=== PATIENT | female | born 1970 | race American Indian/Alaskan Native ===

== ENCOUNTER 2017-02-24 17:33 | Emergency (ER) | payer OTHER ==
[2017-02-24 17:40] VITALS: BMI 58.4
[2017-02-24 17:43] VITALS: BP 160/90; PULSE 84; RESP 18; TEMP 98.3
--- NOTE | 2017-02-24 17:52 | ED PDOC ---
Arrival/HPI - General Chief Complaint: Abdominal Pain Time Seen by Provider: 02/24/17 17:35 Historian: Patient - History of Present Illness Narrative History of Present Illness (Text): 02/24/17 17:50 46yo morbidly obese female present with complaint of suprapubic pain since this morning. States she started having urinary frequency last week. Denies dysuria, fever, chills, back pain, any other complaint. Past Medical History - Provider Review Nursing Documentation Reviewed: Yes - Infectious Disease Hx of Infectious Diseases: None - Tetanus Immunization Tetanus Immunization: Unknown - Past Medical History Past Medical History: No Previous - Cardiac Hx Cardiac Disorders: No - Pulmonary Hx Respiratory Disorders: No - Neurological Hx Migraine: Yes - HEENT Hx HEENT Disorder: No - Renal Hx Renal Disorder: No - Endocrine/Metabolic Hx Endocrine Disorders: No - Hematological/Oncological Hx Blood Disorders: No - Integumentary Hx Dermatological Disorder: No - Musculoskeletal/Rheumatological Hx Musculoskeletal Disorders: No Hx Falls: No - Gastrointestinal Hx Gastrointestinal Disorders: No - Genitourinary/Gynecological Hx Genitourinary Disorders: (abd pain; fibroids) - Psychiatric Hx Psychophysiologic Disorder: No Hx Emotional Abuse: No Hx Physical Abuse: No Hx Substance Use: No - Past Surgical History Past Surgical History: No Previous - Surgical History Hx Abdominal Aortic Aneurysm Repair: Yes Other/Comment: fibroid in stomach - Anesthesia Hx Anesthesia: Yes Hx Anesthesia Reactions: No Hx Malignant Hyperthermia: No - Suicidal Assessment Feels Threatened In Home Enviroment: No Family/Social History - Physician Review Nursing Documentation Reviewed: Yes Family/Social History: Unknown Family HX Smoking Status: Never Smoked Hx Alcohol Use: No Hx Substance Use: No Hx Substance Use Treatment: No Allergies/Home Meds Allergies/Adverse Reactions: Allergies ibuprofen Allergy (Verified 06/30/16 03:52) ANAPHYLAXIS Review of Systems - Physician Review All systems were reviewed & negative as marked: Yes - Review of Systems Constitutional: Normal Eyes: Normal ENT: Normal Respiratory: Normal Cardiovascular: Normal Gastrointestinal: Abdominal Pain. absent: Constipation, Diarrhea, Nausea, Vomiting, Hematochezia, Hematemesis Genitourinary Female: Frequency. absent: Dysuria, Hematuria Musculoskeletal: Normal Skin: Normal Neurological: Normal Endocrine: Normal Hemo/Lymphatic: Normal Psychiatric: Normal Physical Exam Vital Signs Reviewed: Yes Vital Signs Temp Pulse Resp BP Pulse Ox 02/24/17 18:15 98.3 F 84 18 160/90 H 98 02/24/17 17:41 98.3 F 84 18 160/90 H 97 Temperature: Afebrile Blood Pressure: Normal Pulse: Regular Respiratory Rate: Normal Appearance: Positive for: Well-Appearing, Non-Toxic, Comfortable Pain Distress: None Mental Status: Positive for: Alert and Oriented X 3 - Systems Exam Head: Present: Atraumatic, Normocephalic Pupils: Present: PERRL Extroacular Muscles: Present: EOMI Conjunctiva: Present: Normal Mouth: Present: Moist Mucous Membranes Neck: Present: Normal Range of Motion Respiratory/Chest: Present: Clear to Auscultation, Good Air Exchange. No: Respiratory Distress, Accessory Muscle Use Cardiovascular: Present: Regular Rate and Rhythm, Normal S1, S2. No: Murmurs Abdomen: Present: Tenderness (Suprapubic tenderness), Normal Bowel Sounds, Other (Soft). No: Distention, Peritoneal Signs, Rebound, Guarding, McBurney's Point Tender, Rovsing's Sign Present Back: Present: Normal Inspection. No: CVA Tenderness Upper Extremity: Present: Normal Inspection. No: Cyanosis, Edema Lower Extremity: Present: Normal Inspection. No: Edema Neurological: Present: GCS=15, CN II-XII Intact, Speech Normal Skin: Present: Warm, Dry, Normal Color. No: Rashes Psychiatric: Present: Alert, Oriented x 3, Normal Insight, Normal Concentration Medical Decision Making ED Course and Treatment: 02/24/17 21:18 Pt afebrile and comfortable in ED was treated and DC home with Macrobid for UTI. Referred to her PMD. TRT ED for any new or worsening symptoms - Lab Interpretations Lab Results: Lab Results 02/24/17 18:10: Urine Color Yellow, Urine Appearance Cloudy, Urine pH 6.5, Ur Specific [place] 1.015, Urine Protein Trace H, Urine Glucose (UA) Negative, Urine Ketones Negative, Urine Blood Large H, Urine Nitrate Negative, Urine Bilirubin Negative, Urine Urobilinogen 0.2, Ur Leukocyte Esterase Large H, Urine RBC 5 - 10, Urine WBC 15 - 20, Ur Epithelial Cells 6 - 8, Urine Bacteria Many - Medication Orders Current Medication Orders: Discontinued Medications Nitrofurantoin Macrocrystals (Macrobid) 100 mg PO ONCE STA Stop: 02/24/17 18:58 Last Admin: 02/24/17 19:09 Dose: Not Given Non-Admin Reason: Patient Refused Tramadol HCl (Ultram) 50 mg PO STAT STA Stop: 02/24/17 18:58 Last Admin: 02/24/17 19:09 Dose: 50 MG Disposition/Present on Arrival - Present on Arrival Any Indicators Present on Arrival: No History of DVT/PE: No History of Uncontrolled Diabetes: No Urinary Catheter: No History of Decub. Ulcer: No History Surgical Site Infection Following: None - Disposition Have Diagnosis and Disposition been Completed?: Yes Diagnosis: UTI (urinary tract infection) Disposition: HOME/ ROUTINE Disposition Time: 19:00 Patient Plan: Discharge Condition: STABLE Discharge Instructions (ExitCare): Urinary Tract Infection in Women (ED) Additional Instructions: Follow up with your Doctor Drink plenty of fluid/cranberry supplement Return to ED for any new or worsening symptoms Prescriptions: Nitrofurantoin Macrocrystals [Macrobid] 100 mg PO BID #14 cap Referrals: [facility] [place] [Outside] - Follow up with primary
[2017-02-24 18:15] VITALS: O2SAT 98
[2017-02-24 18:44] LABS: PH,URINE 6.5 (4.7-8.0); URINE BILIRUBIN NEGATIVE (NEGATIVE); URINE BLOOD LARGE (NEGATIVE); URINE GLUCOSE (UA) NEGATIVE (NEGATIVE); URINE KETONE NEGATIVE (NEGATIVE); URINE LEUKOCYTE ESTERASE LARGE Leu/uL (NEGATIVE); URINE PROTEIN TRACE mg/dL (<30 mg/dL); URINE UROBILINOGEN 0.2 E.U./dL (<1 E.U./dL)
[2017-02-24 18:45] LABS: URINE APPEARANCE CLOUDY (CLEAR); URINE COLOR YELLOW (YELLOW)
[2017-02-24 18:47] LABS: URINE BACTERIA MANY (NEG); URINE WBC 15 - 20 /hpf (0-6)
== END 2017-02-24 19:15 | disposition home or self-care (01) ==
LOC: ED 17:33
DX: N39.0 Urinary tract infection, site not specified (principal)

== ENCOUNTER 2017-06-25 13:45 | Emergency (ER) | payer OTHER ==
[2017-06-25 14:01] VITALS: BMI 62.3
--- NOTE | 2017-06-25 14:25 | ED PDOC ---
Arrival/HPI - General Chief Complaint: Abdominal Pain Time Seen by Provider: 06/25/17 14:05 Historian: Patient - History of Present Illness Narrative History of Present Illness (Text): 06/25/17 14:22 A 46 year old female, who denies any past medical history, presents to the emergency department complaining of constant left sided abdominal pain since this morning. Patient reports radiating pain to left lower back, which currently has resolved. Patient notes urinary frequency but denies any fever, chills, nausea, vomiting, diarrhea, dysuria, hematuria, hematochezia, vaginal bleeding or discharge, chest pain, shortness of breath or any other complaints. Patients last menstrual period was approximately 4 days ago. PMD: Non-[facility] provider Time/Duration: Other (this morning) Symptom Course: Unchanged Quality: Other Context: Home Past Medical History - Provider Review Nursing Documentation Reviewed: Yes - Infectious Disease Hx of Infectious Diseases: None - Tetanus Immunization Tetanus Immunization: Unknown - Past Medical History Past Medical History: No Previous - Cardiac Hx Cardiac Disorders: No - Pulmonary Hx Respiratory Disorders: No - Neurological Hx Migraine: Yes - HEENT Hx HEENT Disorder: No - Renal Hx Renal Disorder: No - Endocrine/Metabolic Hx Endocrine Disorders: No - Hematological/Oncological Hx Blood Disorders: No - Integumentary Hx Dermatological Disorder: No - Musculoskeletal/Rheumatological Hx Musculoskeletal Disorders: No Hx Falls: No - Gastrointestinal Hx Gastrointestinal Disorders: No - Genitourinary/Gynecological Hx Genitourinary Disorders: (abd pain; fibroids) - Psychiatric Hx Psychophysiologic Disorder: No Hx Substance Use: No - Past Surgical History Past Surgical History: No Previous - Surgical History Hx Abdominal Aortic Aneurysm Repair: Yes Other/Comment: fibroid in stomach 2010 - Anesthesia Hx Anesthesia: Yes Hx Anesthesia Reactions: No Hx Malignant Hyperthermia: No - Suicidal Assessment Feels Threatened In Home Enviroment: No Family/Social History - Physician Review Nursing Documentation Reviewed: Yes Family/Social History: No Known Family HX Smoking Status: Never Smoked Hx Alcohol Use: No Hx Substance Use: No Hx Substance Use Treatment: No Allergies/Home Meds Allergies/Adverse Reactions: Allergies ibuprofen Allergy (Verified 06/30/16 03:52) ANAPHYLAXIS Review of Systems - Physician Review All systems were reviewed & negative as marked: Yes - Review of Systems Constitutional: absent: Fevers, Night Sweats Respiratory: absent: SOB Cardiovascular: absent: Chest Pain Gastrointestinal: Abdominal Pain (left sided). absent: Diarrhea, Nausea, Vomiting, Hematochezia Genitourinary Female: Frequency. absent: Dysuria, Hematuria, Vaginal Bleeding, Vaginal Discharge Musculoskeletal: Back Pain (resolved) Physical Exam Vital Signs Reviewed: Yes Vital Signs Temp Pulse Resp BP Pulse Ox 06/25/17 17:00 97.4 F L 06/25/17 15:45 97.4 F L 80 18 159/94 H 100 06/25/17 13:45 99 F 83 18 155/92 H 98 Temperature: Afebrile Blood Pressure: Hypertensive Pulse: Regular Respiratory Rate: Normal Appearance: Positive for: Well-Appearing, Non-Toxic, Comfortable Pain Distress: None Mental Status: Positive for: Alert and Oriented X 3 - Systems Exam Head: Present: Atraumatic, Normocephalic Pupils: Present: PERRL Extroacular Muscles: Present: EOMI Conjunctiva: Present: Normal Mouth: Present: Moist Mucous Membranes Pharnyx: No: ERYTHEMA, EXUDATE, TONSILS ENLARGED Neck: Present: Normal Range of Motion Respiratory/Chest: Present: Clear to Auscultation, Good Air Exchange. No: Respiratory Distress, Accessory Muscle Use Cardiovascular: Present: Regular Rate and Rhythm, Normal S1, S2. No: Murmurs Abdomen: Present: Tenderness (Diffuse left sided abdominal tenderness to palpation), Normal Bowel Sounds. No: Distention, Peritoneal Signs, Rebound, Guarding Genitourinary/Pelvic Exam: Present: Normal External Genitalia, Vaginal Bleeding (mild), Adenexal Tenderness (mild left adnexal tenderness but no guarding), Cervical os Closed, Other (Chaperoned by EMT Samir). No: Vaginal Discharge, Vaginal Lesions, Adenexal Mass, Cervical Motion Tendernes Back: Present: Normal Inspection Upper Extremity: Present: Normal Inspection. No: Cyanosis, Edema Lower Extremity: Present: Normal Inspection. No: Edema Neurological: Present: GCS=15, CN II-XII Intact, Speech Normal Skin: Present: Warm, Dry, Normal Color. No: Rashes Psychiatric: Present: Alert, Oriented x 3, Normal Insight, Normal Concentration Medical Decision Making ED Course and Treatment: 06/25/17 14:22 Impression: A 46 year old female with left sided abdominal pain. Patient notes urinary frequency. On exam, diffuse left sided tenderness. Differential Diagnosis included but are not limited to: Diverticulitis vs. Colitis vs. UTI vs. Renal colic Plan: -- Abdomen and pelvis CT -- Labs -- Urine culture and Urinalysis -- IV fluids -- Reassess and disposition Progress Notes: 06/25/17 17:42 Patient felt much better after tylenol, IVF and Zofran. TVsono could not visualize left ovary due to body habitus. Patients exam is left sided and not focal to left lower. CT shows enteritis which is more consistent with her symptoms. She also has trichomonas and a UTI. She will be treated with Cipro and Flagyl and be discharge home. Advised to start Flagyl tomorrow but continue Cipro today. She was also advised to follow up with her obgyn in 1-2days. She has one to follow up with. In addition she will f/u with her PMD. Advised to return to the ED if symptoms worsen or any other concern. - Lab Interpretations Lab Results: 06/25/17 15:00 06/25/17 15:00 Lab Results 06/25/17 15:00: Sodium 139, Potassium 3.5 L, Chloride 103, Carbon Dioxide 28, Anion Gap 12, BUN 13, Creatinine 0.8, Est GFR ( Amer) > 60, Est GFR (Non- Af Amer) > 60, Random Glucose 95, Calcium 9.0, Total Bilirubin 0.4, AST 23, ALT 32, Alkaline Phosphatase 53, Total Protein 7.5, Albumin 4.0, Globulin 3.5, Albumin/Globulin Ratio 1.1, Lipase 111 06/25/17 15:00: Urine Color Yellow, Urine Appearance Cloudy, Urine pH 6.5, Ur Specific [place] 1.015, Urine Protein 30 H, Urine Glucose (UA) Negative, Urine Ketones Negative, Urine Blood Large H, Urine Nitrate Negative, Urine Bilirubin Negative, Urine Urobilinogen 0.2, Ur Leukocyte Esterase Large H, Urine RBC 5 - 10, Urine WBC 20 - 25, Ur Epithelial Cells 3 - 4, Urine Bacteria Mod, Urine Other Trichomonas 06/25/17 15:00: PT 10.7, INR 0.99, APTT 25.0 06/25/17 15:00: WBC 8.4, RBC 4.14, Hgb 10.7 L, Hct 32.0 L, MCV 77.3 L, MCH 25.8 , MCHC 33.4, RDW 14.8 H, Plt Count 370, MPV 9.2, Gran % 61.5, Lymph % (Auto) 32.6, [place] % (Auto) 5.0, Eos % (Auto) 0.7 L, Baso % (Auto) 0.2, Gran # 5.18, Lymph # 2.8, [place] # 0.4, Eos # 0.1, Baso # 0.02 I have reviewed the lab results: Yes - RAD Interpretation Radiology Orders: 06/25/17 14:28 ABD & PELVIS IV CONTRAST ONLY [CT] Stat 06/25/17 15:00 TRANSVAGINAL [US] Stat - Medication Orders Current Medication Orders: Sodium Chloride (Sodium Chloride 0.9%) 1,000 mls @ 100 mls/hr IV .Q10H STA Stop: 06/26/17 00:26 Last Admin: 06/25/17 15:05 Dose: 100 mls/hr Discontinued Medications Acetaminophen (Tylenol 325mg Tab) 975 mg PO STAT STA Stop: 06/25/17 15:36 Last Admin: 06/25/17 17:00 Dose: 975 mg Ciprofloxacin (Cipro) 500 mg PO ONCE STA PRN Reason: Protocol Stop: 06/25/17 17:18 Last Admin: 06/25/17 17:35 Dose: 500 mg Iohexol (Omnipaque 350 150 Ml) Confirm Administered Dose 150 ml .ROUTE .STK-MED ONE Stop: 06/25/17 16:24 Metronidazole (Flagyl) 2,000 mg PO STAT STA PRN Reason: Protocol Stop: 06/25/17 17:29 Ondansetron HCl (Zofran Inj) 4 mg IVP STAT STA Stop: 06/25/17 17:05 Last Admin: 06/25/17 17:16 Dose: 4 mg Potassium Chloride (K-Dur 20 Meq Er Tab) 40 meq PO STAT STA Stop: 06/25/17 15:37 Last Admin: 06/25/17 16:53 Dose: 40 meq - Scribe Statement The provider has reviewed the documentation as recorded by the Scribe Kiki Shankar Provider Scribe Attestation: All medical record entries made by the Scribe were at my direction and personally dictated by me. I have reviewed the chart and agree that the record accurately reflects my personal performance of the history, physical exam, medical decision making, and the department course for this patient. I have also personally directed, reviewed, and agree with the discharge instructions and disposition. Disposition/Present on Arrival - Present on Arrival Any Indicators Present on Arrival: No History of DVT/PE: No History of Uncontrolled Diabetes: No Urinary Catheter: No History of Decub. Ulcer: No History Surgical Site Infection Following: None - Disposition Have Diagnosis and Disposition been Completed?: Yes Diagnosis: Enteritis, Abdominal pain Disposition: HOME/ ROUTINE Disposition Time: 17:47 Patient Plan: Discharge Patient Problems: Current Active Problems Problem Status Onset Enteritis Acute Abdominal pain Acute Condition: IMPROVED Discharge Instructions (ExitCare): Acute Abdominal Pain (ED), Enteritis (ED) Additional Instructions: Ms Stern, thank you for letting us take care of you today. Your provider was Dr. Munoz. You were treated for Abdominal Pain, Enteritis. The emergency medical care you received today was directed at your acute symptoms. If you were prescribed any medication, please fill it and take as directed. It may take several days for your symptoms to resolve. Return to the Emergency Department if your symptoms worsen, do not improve, or if you have any other problems. Please contact your doctor or call one of the physicians/clinics you have been referred to that are listed on the Patient Visit Information form that is included in your discharge packet. Bring any paperwork you were given at discharge with you along with any medications you are taking to your follow up visit. Our treatment cannot replace ongoing medical care by a primary care provider (PCP) outside of the emergency department. Thank you for allowing the [facility] team to be part of your care today. If you had an X-Ray or CT scan: A Radiologist will review the ED reading if any change in treatment is needed we will contact you. If you had a blood, urine, or wound culture: It will take several days for the results, if any change in treatment is needed we will contact you. If you had an STI test: It will take 48 hours for the results. Please call after 1 week if you have not heard back. Prescriptions: Acetaminophen with Codeine [Tylenol with Codeine #3 Tablet] 1 each PO Q6 PRN # 20 tablet PRN Reason: Pain, Moderate (4-7) Ciprofloxacin HCl [Cipro] 500 mg PO BID #20 tab Metronidazole [Flagyl] 500 mg PO TID #30 tab Referrals: PCP,NO [Primary Care Provider] - Follow up with primary Forms: [employer] ([place]grin), WORK NOTE
[2017-06-25] MEDS ORDERED: Sodium Chloride 0.9% 1,000 ML IV STA (14:27)
[2017-06-25 15:20] LABS: ALB/GLOB RATIO 1.1 (1.1-1.8); ALKALINE PHOSPHATASE 53 U/L (38-133); ALT/SGPT 32 U/L (7-56); AST/SGOT 23 U/L (15-39); BILIRUBIN,TOTAL 0.4 mg/dL (0.2-1.3); BLOOD UREA NITROGEN 13 mg/dL (7-21); CARBON DIOXIDE 28 mmol/L (21-33); GFR AFRICAN-AMERICAN > 60; GLUCOSE,RANDOM 95 mg/dL (70-110); LIPASE 111 U/L (23-300); POTASSIUM 3.5 mmol/L (3.6-5.0); SODIUM 139 mmol/L (132-148); TOTAL PROTEIN 7.5 g/dL (5.8-8.3)
[2017-06-25 15:23] LABS: BASO # 0.02 K/mm3 (0.0-2.0); BASO % 0.2 % (0.0-3.0); EOS # 0.1 (0.0-0.7); EOS % 0.7 % (1.5-5.0); GRAN # 5.18 (1.4-6.5); GRAN % 61.5 % (50.0-68.0); LYMPH # 2.8 (1.2-3.4); LYMPH % 32.6 % (22.0-35.0); MEAN CELL VOLUME 77.3 fl (80.0-105.0); MEAN CORPUSCULAR HEMOGLOBIN 25.8 pg (25.0-35.0); MEAN CORPUSCULAR HGB CONC 33.4 g/dl (31.0-37.0); MEAN PLATELET VOLUME 9.2 fl (7.0-11.0); MONO # 0.4 (0.1-0.6); RED CELL DISTRIBUTION WIDTH 14.8 % (11.5-14.5); WHITE BLOOD COUNT 8.4 10^3/ul (4.5-11.0)
[2017-06-25 15:24] LABS: PH,URINE 6.5 (4.7-8.0); URINE BILIRUBIN NEGATIVE (NEGATIVE); URINE BLOOD LARGE (NEGATIVE); URINE GLUCOSE (UA) NEGATIVE (NEGATIVE); URINE KETONE NEGATIVE (NEGATIVE); URINE LEUKOCYTE ESTERASE LARGE Leu/uL (NEGATIVE); URINE PROTEIN 30 mg/dL (<30 mg/dL); URINE UROBILINOGEN 0.2 E.U./dL (<1 E.U./dL)
[2017-06-25 15:25] LABS: URINE APPEARANCE CLOUDY (CLEAR); URINE COLOR YELLOW (YELLOW)
[2017-06-25 15:31] LABS: INR 0.99 (0.93-1.08)
[2017-06-25 15:35] LABS: CHLORIDE 103 mmol/L (98-107)
[2017-06-25] MEDS ORDERED: Potassium Chloride 20 mEq ER Tab PO STA (15:36)
[2017-06-25 15:49] LABS: URINE BACTERIA MOD (NEG); URINE WBC 20 - 25 /hpf (0-6)
--- NOTE | 2017-06-25 16:28 | US ---
HISTORY: left adnexal tenderness r/o cyst vs torsion COMPARISON: None available. TECHNIQUE: Transabdominal and transvaginal FINDINGS: UTERUS: Measures 10.5 x 3.8 x 5.3 cm. No uterine mass. ENDOMETRIUM: Endometrium is significant for endometrial mass measuring approximately 2.4 x 1.1 by 1.7 cm, likely polyp. No definite vascular flow demonstrated sonographically. CERVIX: No cervical abnormality identified. RIGHT OVARY: Measures 2.4 x 2.1 x 1.5 cm. No solid mass. Normal flow. LEFT OVARY: Could not be visualized by transabdominal or transvaginal technique. Examination limited due to patient body habitus. FREE FLUID: No significant free fluid noted. OTHER FINDINGS: None. IMPRESSION: Nonvisualization of left ovary. Cannot exclude torsion. Probable endometrial polyp. No additional abnormality.
--- NOTE | 2017-06-25 17:13 | CT ---
PROCEDURE: CT Abdomen and Pelvis with contrast HISTORY: left sided pain r/o diverticulitis COMPARISON: 06/21/2015 TECHNIQUE: Contrast dose: 150 mL Omnipaque 350 Radiation dose: Total exam DLP = 1360.28 mGy-cm. This CT exam was performed using one or more of the following dose reduction techniques: Automated exposure control, adjustment of the mA and/or kV according to patient size, and/or use of iterative reconstruction technique. FINDINGS: LOWER THORAX: Unremarkable. LIVER: Normal size, contour and attenuation. 5.4 cm rounded low-attenuation lesion in the dome of the left hepatic lobe, nonspecific. No other mass. No biliary ductal dilatation. GALLBLADDER AND BILE DUCTS: Unremarkable. PANCREAS: Unremarkable. No gross lesion or ductal dilatation. SPLEEN: Unremarkable. ADRENALS: Unremarkable. No mass. KIDNEYS AND URETERS: 2.6 cm rounded low-attenuation lesion right lower pole kidney, likely cyst. This is evident on prior CT examination although noncontrast CT limits direct comparison. No other renal mass. No renal calculus or hydronephrosis. VASCULATURE: Unremarkable. No aortic aneurysm. BOWEL: Mural thickening of multiple loops of proximal jejunum consistent with nonspecific enteritis. No bowel obstruction. No diverticulitis. APPENDIX: Normal appendix. PERITONEUM: Unremarkable. No free fluid. No free air. LYMPH NODES: Unremarkable. No enlarged lymph nodes. BLADDER: Unremarkable. REPRODUCTIVE: No uterine mass. There is central low attenuation within the cervix for which further evaluation is advised to exclude cervical neoplasm. BONES: No acute fracture. OTHER FINDINGS: None. IMPRESSION: Nonspecific enteritis involving multiple loops of proximal jejunum. No evidence of diverticulitis. Central low attenuation within the cervix common nonspecific. Recommend further evaluation to exclude cervical neoplasm. Additional minor findings as above.
[2017-06-25 17:23] VITALS: PULSE 80; O2SAT 100
[2017-06-25 17:55] VITALS: BP 158/92; RESP 15; TEMP 97.5
== END 2017-06-25 18:07 | disposition home or self-care (01) ==
LOC: ED 13:45
DX: K52.9 Noninfective gastroenteritis and colitis, unspecified (principal); R10.9 Unspecified abdominal pain
CPT/HCPCS: 74177; 76830; 80053; 81001; 83690; 85025; 85610; 85730; 87086; 87491; 87591; 96361; 96374; 99285; J2405; J7040; Q9967

== ENCOUNTER 2018-07-19 21:07 | Emergency (ER) | payer OTHER ==
[2018-07-19 21:46] VITALS: BP 149/70; PULSE 85; RESP 20; TEMP 98.3; O2SAT 97; BMI 58.4
--- NOTE | 2018-07-19 21:48 | ED PDOC ---
Arrival/HPI - General Time Seen by Provider: 07/19/18 21:16 Historian: Patient - History of Present Illness Narrative History of Present Illness (Text): 07/19/18 21:42 47yr old female presents today with depression and anxiety. pt states that she has been feeling very stressed out. pt states she doesnt want to talk about it. pt states she hasnt been eating, or sleeping. pt denies cp or sob. pt states she keeps getting phone calls from immigration about her . pt denies abdominal pain. no vomiting. no other complaints. Past Medical History - Provider Review Nursing Documentation Reviewed: Yes - Travel History Have you recently traveled outside [place] w/in the past 3 mons?: No - Infectious Disease Hx of Infectious Diseases: None - Tetanus Immunization Tetanus Immunization: Unknown - Past Medical History Past Medical History: No Previous - Cardiac Hx Cardiac Disorders: No - Pulmonary Hx Respiratory Disorders: No - Neurological Hx Migraine: Yes - HEENT Hx HEENT Disorder: No - Renal Hx Renal Disorder: No - Endocrine/Metabolic Hx Endocrine Disorders: No - Hematological/Oncological Hx Blood Disorders: No - Integumentary Hx Dermatological Disorder: No - Musculoskeletal/Rheumatological Hx Musculoskeletal Disorders: No Hx Falls: No - Gastrointestinal Hx Gastrointestinal Disorders: No - Genitourinary/Gynecological Hx Genitourinary Disorders: (abd pain; fibroids) - Psychiatric Hx Psychophysiologic Disorder: No Hx Substance Use: No - Past Surgical History Past Surgical History: No Previous - Surgical History Hx Abdominal Aortic Aneurysm Repair: Yes Other/Comment: fibroid in stomach 2010 - Anesthesia Hx Anesthesia: Yes Hx Anesthesia Reactions: No Hx Malignant Hyperthermia: No - Suicidal Assessment Feels Threatened In Home Enviroment: No Family/Social History - Physician Review Nursing Documentation Reviewed: Yes Family/Social History: Unknown Family HX Smoking Status: Never Smoked Hx Alcohol Use: No Hx Substance Use: No Hx Substance Use Treatment: No Allergies/Home Meds Allergies/Adverse Reactions: Allergies ibuprofen Allergy (Verified 06/30/16 03:52) ANAPHYLAXIS Review of Systems - Review of Systems Constitutional: absent: Fatigue, Fevers Respiratory: absent: SOB, Cough Cardiovascular: absent: Chest Pain, Palpitations Gastrointestinal: absent: Abdominal Pain, Nausea, Vomiting Genitourinary Female: absent: Dysuria, Frequency, Hematuria Musculoskeletal: absent: Arthralgias, Back Pain, Neck Pain Skin: absent: Rash, Pruritis Psychiatric: Anxiety, Depression. absent: Suicidal Ideation Physical Exam Vital Signs Reviewed: Yes Vital Signs Temp Pulse Resp BP Pulse Ox 07/19/18 21:39 98.3 F 85 20 149/70 97 Temperature: Afebrile Blood Pressure: Normal Pulse: Regular Respiratory Rate: Normal Appearance: Positive for: Well-Appearing, Non-Toxic, Comfortable Pain Distress: None Mental Status: Positive for: Alert and Oriented X 3 - Systems Exam Head: Present: Atraumatic Mouth: Present: Moist Mucous Membranes Respiratory/Chest: Present: Clear to Auscultation Cardiovascular: Present: Regular Rate and Rhythm Abdomen: No: Tenderness, Rebound, Guarding Upper Extremity: Present: Normal ROM Lower Extremity: Present: Normal ROM Neurological: Present: GCS=15, Speech Normal Skin: Present: Warm, Dry, Normal Color. No: Rashes Psychiatric: Present: Alert, Oriented x 3, Depressed Mood Medical Decision Making ED Course and Treatment: 07/19/18 23:05 Patient is nontoxic well-appearing in no distress vital signs are stable. CBC WNL CMP WNL Tylenol WNL Salicylate WNL Alcohol level WNL Urine drug screen wnl UA; trace leukocytes; + wbcs. cxr: wnl ekg normal sinus rhythm at 65 bpm normal axis no ST elevations normal intervals pt is medically cleared for PES evaluation Patient was seen and evaluated by PES screener Patient cleared psychiatrically for discharge pt started on keflex for UTI. I advised follow-up with outpatient [facility] the primary care physician within the next 2 days advised taking antibiotics twice daily for 7 days for urinary tract infection. Advised immediate return if symptoms worsen persist or if new concerning symptoms develop Patient verbalizes understanding of discharge instructions and need for immediate followup. all aspects of this case were discussed the attending of record. Impression; anxiety, depression, UTI Keflex; 1 capsule twice daily x 7 days. Followup with the [facility] within the next 2 days follow up with your primary care physician within the next 2 days. return immediately if symptoms worsen, persist or if new symptoms develop. - Lab Interpretations Lab Results: 07/19/18 21:59 07/19/18 21:59 Lab Results 07/19/18 22:19: Urine Opiates Screen Negative, Urine Methadone Screen Negative, Ur Barbiturates Screen Negative, Ur Phencyclidine Scrn Negative, Ur Amphetamines Screen Negative, U Benzodiazepines Scrn Negative, U Oth Cocaine Metabols Negative, U Cannabinoids Screen Negative 07/19/18 22:19: Urine Color Yellow, Urine Appearance Sl cloudy, Urine pH 6.0, Ur Specific Taylor 1.015, Urine Protein Negative, Urine Glucose (UA) Negative, Urine Ketones Negative, Urine Blood Large H, Urine Nitrate Negative, Urine Bilirubin Negative, Urine Urobilinogen 0.2, Ur Leukocyte Esterase Trace H, Urine RBC 15 - 20, Urine WBC 10 - 15, Ur Epithelial Cells 6 - 8, Urine Bacteria Mod 07/19/18 21:59: Alcohol, Quantitative < 10 07/19/18 21:59: Salicylates < 1 L, Acetaminophen < 10.0 L 07/19/18 21:59: Sodium 140, Potassium 3.3 L, Chloride 104, Carbon Dioxide 25, Anion Gap 14, BUN 12, Creatinine 0.8, Est GFR ( Amer) > 60, Est GFR (Non- Af Amer) > 60, Random Glucose 104, Calcium 9.2, Total Bilirubin 0.4, AST 23, ALT 21, Alkaline Phosphatase 56, Total Protein 8.2, Albumin 4.3, Globulin 3.9, Albumin/Globulin Ratio 1.1 07/19/18 21:59: WBC 10.5 D, RBC 4.47, Hgb 11.6 L, Hct 35.0 L, MCV 78.3 L, MCH 26.0, MCHC 33.1, RDW 14.7 H, Plt Count 392, MPV 9.3, Gran % 55.0, Lymph % (Auto ) 38.2 H, [place] % (Auto) 5.8, Eos % (Auto) 0.8 L, Baso % (Auto) 0.2, Gran # 5.76 , Lymph # (Auto) 4.0 H, [place] # (Auto) 0.6, Eos # (Auto) 0.1, Baso # (Auto) 0.02 - RAD Interpretation Radiology Orders: 07/19/18 21:51 CHEST PORTABLE [RAD] Stat - Medication Orders Current Medication Orders: Discontinued Medications Cephalexin Monohydrate (Keflex) 500 mg PO STAT STA PRN Reason: Protocol Stop: 07/19/18 23:04 Last Admin: 07/19/18 23:31 Dose: 500 mg Disposition/Present on Arrival - Present on Arrival Any Indicators Present on Arrival: No History of DVT/PE: No History of Uncontrolled Diabetes: No Urinary Catheter: No History Surgical Site Infection Following: None - Disposition Have Diagnosis and Disposition been Completed?: Yes Diagnosis: Urinary tract infection, Anxiety, Depression Disposition: HOME/ ROUTINE Disposition Time: 22:29 Patient Plan: Discharge Patient Problems: Current Active Problems Problem Status Onset Anxiety Acute Depression Acute Urinary tract infection Acute Condition: GOOD Discharge Instructions (ExitCare): Depression, Adult (DC), Urinary Tract Infection, Adult (DC), Anxiety, Adult (DC) Additional Instructions: Keflex; 1 capsule twice daily x 7 days. Followup with the behavioral health center within the next 2 days follow up with your primary care physician within the next 2 days. return immediately if symptoms worsen, persist or if new symptoms develop. Prescriptions: Cephalexin [Keflex] 500 mg PO BID #14 capsule Referrals: Bhavna Bullock MD [Medical Doctor] - Follow up with primary [employer] [facility] [Outside] - Follow up with primary [facility] [Outside] - Follow up with primary Forms: WORK NOTE
[2018-07-19 22:28] LABS: URINE BILIRUBIN NEGATIVE (NEGATIVE); URINE BLOOD LARGE (NEGATIVE); URINE GLUCOSE (UA) NEGATIVE (NEGATIVE); URINE LEUKOCYTE ESTERASE TRACE Leu/uL (NEGATIVE); URINE PROTEIN NEGATIVE mg/dL (<30 mg/dL); URINE UROBILINOGEN 0.2 E.U./dL (<1 E.U./dL)
[2018-07-19 22:28] LABS: BASO # 0.02 K/mm3 (0.0-2.0); BASO % 0.2 % (0.0-3.0); EOS # 0.1 (0.0-0.7); EOS % 0.8 % (1.5-5.0); GRAN # 5.76 (1.4-6.5); HEMOGLOBIN 11.6 g/dL (12.0-16.0); LYMPH % 38.2 % (22.0-35.0); MEAN CELL VOLUME 78.3 fl (80.0-105.0); MEAN CORPUSCULAR HGB CONC 33.1 g/dl (31.0-37.0); MEAN PLATELET VOLUME 9.3 fl (7.0-11.0); MONO # 0.6 (0.1-0.6); MONO % 5.8 % (1.0-6.0); RBC 4.47 10^6/uL (3.5-6.1); RED CELL DISTRIBUTION WIDTH 14.7 % (11.5-14.5); WHITE BLOOD COUNT 10.5 10^3/ul (4.5-11.0)
[2018-07-19 22:34] LABS: ACETAMINOPHEN < 10.0 ug/ml (10.0-20.0); SALICYLATE < 1 mg/dL (2.0-20.0)
[2018-07-19 22:35] LABS: URINE APPEARANCE SL CLOUDY (CLEAR); URINE COLOR YELLOW (YELLOW)
[2018-07-19 22:36] LABS: ALB/GLOB RATIO 1.1 (1.1-1.8); ALBUMIN 4.3 g/dL (3.0-4.8); ALT/SGPT 21 U/L (7-56); AST/SGOT 23 U/L (14-36); BLOOD UREA NITROGEN 12 mg/dL (7-21); CALCIUM 9.2 mg/dL (8.4-10.5); GFR NON-AFRICAN AMERICAN > 60
[2018-07-19 22:37] LABS: URINE RBC 15 - 20 /hpf (0-2)
[2018-07-19 22:38] LABS: URINE BACTERIA MOD (NEG)
[2018-07-19 22:58] LABS: BARBITURATES, UR NEGATIVE (NEGATIVE); BENZODIAZEPINES, UR NEGATIVE (NEGATIVE); OPIATES, UR NEGATIVE (NEGATIVE); PHENCYCLIDINE, UR NEGATIVE (NEGATIVE)
--- NOTE | 2018-07-20 09:20 | RAD ---
Date of service: 07/19/2018 HISTORY: pes eval COMPARISON: Portable chest 06/30/2016. FINDINGS: LUNGS: No active pulmonary disease. PLEURA: No significant pleural effusion identified, no pneumothorax apparent. CARDIOVASCULAR: Normal. OSSEOUS STRUCTURES: No significant abnormalities. VISUALIZED UPPER ABDOMEN: Normal. OTHER FINDINGS: None. IMPRESSION: No interval acute cardiopulmonary disease appreciated.
--- NOTE | 2018-07-20 09:46 | CARD ---
APPROVED REPORT Date of service: 07/19/2018 EKG Measurement Heart [id number] <Conclusion> Normal sinus rhythm Nonspecific T wave abnormality Abnormal ECG
== END 2018-07-20 01:44 | disposition home or self-care (01) ==
LOC: ED 21:07
DX: N39.0 Urinary tract infection, site not specified (principal); F32.9 Major depressive disorder, single episode, unspecified; F41.9 Anxiety disorder, unspecified